=== PATIENT | male | born 1995 | race Caucasian/White ===

== ENCOUNTER 2018-02-03 07:22 | Day surgery (SDC) | payer OTHER ==
[~2018-02-03] VITALS: Ht 188 cm; Wt 90.7 kg
[2018-02-03] VITALS (9 sets, daily range): BP systolic 107–142; BP diastolic 56–80
--- NOTE | 2018-02-03 07:12 | Pre-Procedure Note/Attestation ---
Pre-Procedure Note/Attestation Complete Prior to Procedure Planned Procedure: left Procedure Narrative: knee arthroscopy lateral menisectomy Indications for Procedure Pre-Operative Diagnosis: left knee lateral meniscus tear Attestation I attest that I discussed the nature of the procedure; its benefits; risks and complications; and alternatives (and the risks and benefits of such alternatives ), prior to the procedure, with the patient (or the patient's legal key account representative). I attest that, if there was a reasonable possibility of needing a blood transfusion, the patient (or the patient's legal key account representative) was given the [facility] standardized written summary, pursuant to the Jeet Blairs Blood Safety Act ([place] Health and Safety Code # 1645, as amended). I attest that I re-evaluated the patient just prior to the surgery and that there has been no change in the patient's H&P, except as documented below: Ivan Duque MD Feb 03, 2018 07:12
--- NOTE | 2018-02-03 07:13 | Operative Note - PDOC ---
Operative Note Operative Note Pre-op Diagnosis: left knee lateral meniscus tear Procedure: see op report Post-op Diagnosis: same as pre-op plus Operative Findings: consistent w/pre-op dx studies Anesthesia: MAC Specimen: none Complications: none Condition: stable Estimated Blood Loss: none Implant(s) used?: No Ivan Duque MD Feb 03, 2018 07:13
[~2018-02-03 07:22] MED LIST: D5 1/2NS 1,000 ML IV SCH; HYDROmorphone 1mg/ml Carpuject SUBQ PRN; NKM; Norco 5mg/325mg tab ORAL PRN; Tylenol #3 tab (300mg/30mg) ORAL PRN; ceFAZolin 1gm in D5W 55ml IVP ONE; celeBREX 200mg Cap **SURGERY PATIENTS ONLY ORAL ONE; oxyCONTIN 20mg tab ORAL ONE
[2018-02-03] MEDS ORDERED: celeBREX 200mg Cap **SURGERY PATIENTS ONLY ORAL ONE (09:03)
[2018-02-03] MEDS ORDERED: oxyCONTIN 20mg tab ORAL ONE (09:03)
[2018-02-03] MEDS ORDERED: Midazolam 2mg/2ml Inj ONE (09:29)
[2018-02-03] MEDS ORDERED: fentaNYL 100 mcg/2 mL IV ONE (09:29)
[2018-02-03] MEDS ORDERED: LR 1000ml ONE (09:30)
[2018-02-03] MEDS ORDERED: Morphine Sulfate PF 10 ML ONE (09:32)
[2018-02-03] MEDS ORDERED: Lidocaine 1% 10mg/ml/Epi 0.005mg/ml 30ml vial INJ ONE ×2 (09:33→15:48)
[2018-02-03] MEDS ORDERED: Bupivacaine 0.5% Inj 30 ml vial INJ ONE (09:33)
[2018-02-03] MEDS ORDERED: Kenalog-40 1ml Vial ONE (09:33)
[2018-02-03] MEDS ORDERED: EPINEPHrine 1mg/1ml Amp ONE (09:33)
[2018-02-03] MEDS ORDERED: Ketorolac 30mg Inj ONE ×2 (09:33→09:35)
[2018-02-03] MEDS ORDERED: Lidocaine 1% MPF 10mg/ml 5ml ONE (09:35)
[2018-02-03] MEDS ORDERED: Propofol 200mg/20ml IV ONE (09:35)
[2018-02-03] MEDS ORDERED: LR 1000ml 1,000 ML IVLG SCH (10:12)
--- NOTE | 2018-02-03 10:12 | Anethesia Preoperative Eval ---
Anesthesia Pre-op PMH/ROS General Date of Evaluation: Feb 03, 2018 Time of Evaluation: 09:38 Anesthesiologist: Jaja ASA Score: ASA 2 Mallampati Score Class I : Soft palate, uvula, fauces, pillars visible Class II: Soft palate, uvula, fauces visible Class III: Soft palate, base of uvula visible Class IV: Only hard plate visible Mallampati Classification: Class II Surgeon: Neto Diagnosis: L knee pain Surgical Procedure: Lknee scope Anesthesia History: none Family History: no anesthesia problems Allergies: Coded Allergies: No Known Allergies (Unverified , 02/02/18) Past Medical History Cardiovascular: Denies: HTN, CAD, SD, valve dz, arrhythmia, other Pulmonary: Denies: asthma, COPD, SHEILA, other Gastrointestinal/Genitourinary: Reports: GERD - mild; Denies: CRI, ESRD, other Neurologic/Psychiatric: Denies: dementia, CVA, depression/anxiety, TIA, other Endocrine: Denies: DM, hypothyroidism, steroids, other HEENT: Denies: cataract (L), cataract (R), glaucoma, [place] (L), [place] (R), other Hematology/Immune: Denies: anemia, DVT, bleeding disorder, other Musculoskeletal/Integumentary: Denies: OA, RA, DJD, DDD, edema, other PMH Narrative: as above PSxH Narrative: R knee scope Anesthesia Pre-op Phys. Exam Physician Exam Last Vital Signs Date Time Temp Pulse Resp B/P (MAP) Pulse Ox O2 Delivery O2 Flow Rate FiO2 02/03/18 08:56 97.3 65 20 126/72 (90) 100 97.3 02/03/18 08:52 Room Air Constitutional: NAD Neurologic: CN 2-12 intact Cardiovascular: RRR, no M/R/G Respiratory: CTA Gastrointestinal: S/NT/ND Airway Exam Mallampati Score: Class II MO: full Neck: flexible ROM: full Teeth: intact Dentures: no upper, no lower Anesthesia Pre-op A/P Labs see chart Studies Pre-op Studies: EKG - NSR Risk Assessment & Plan Assessment: ASA 2 Plan: GA with LMA Status Change Before Surgery: No Pre-Antibiotics Drug: Ancef 1gr. Given Within 1 Hr of Incision: Yes Time Given: 09:58 Seng Wilkinson MD Feb 03, 2018 10:12
[2018-02-03] MEDS ORDERED: Metoclopramide 10mg/2ml Inj IVP PRN (10:15)
[2018-02-03] MEDS ORDERED: Meperidine 50mg/ml Inj(FOR RIGORS ONLY) IV PRN (10:15)
[2018-02-03] MEDS ORDERED: Ketorolac 30mg Inj IV PRN (10:15)
[2018-02-03] MEDS ORDERED: DiphenhydrAMINE 50mg/ml Inj IVP PRN (10:15)
--- NOTE | 2018-02-03 10:42 | Immediate Post-Op Evaluation ---
Immediate Post-Op Evalulation Immediate Post-Op Evalulation Procedure: L knee arthroscopy meniscectomy Date of Evaluation: Feb 03, 2018 Time of Evaluation: 10:41 IV Fluids: 800 Blood Products: none Estimated Blood Loss: min Urinary Output: none Blood Pressure Systolic: 107 Blood Pressure Diastolic: 56 Pulse Rate: 72 Respiratory Rate: 20 O2 Sat by Pulse Oximetry: 99 Temperature (Fahrenheit): 97.6 Pain Score (1-10): 2 Nausea: No Vomiting: No Complications none Patient Status: awake, patent, none Hydration Status: adequate Seng Wilkinson MD Feb 03, 2018 10:41
--- NOTE | 2018-02-03 12:14 | 48 Hour Post Anesthesia Eval ---
Post Anesthesia Evaluation Procedure: L knee arthroscopy meniscectomy Date of Evaluation: Feb 03, 2018 Time of Evaluation: 12:13 Blood Pressure Systolic: 112 0: 56 Pulse Rate: 78 Respiratory Rate: 18 Temperature (Fahrenheit): 97.6 O2 Sat by Pulse Oximetry: 98 Airway: patent Nausea: No Vomiting: No Pain Intensity: 2 Hydration Status: adequate Cardiopulmonary Status: stable Mental Status/LOC: patient returned to baseline Follow-up Care/Observations: n/a Post-Anesthesia Complications: none Follow-up care needed: ready to discharge Seng Wilkinson MD Feb 03, 2018 12:14
[2018-02-03] MEDS ORDERED: NS Irrig 4000ml IRRIG ONE (15:46)
[2018-02-03] MEDS ORDERED: Kenalog-40 1ml Vial INJ ONE (15:47)
[2018-02-03] MEDS ORDERED: Duramorph PF 10mg/10ml amp IT ONE (15:47)
--- NOTE | 2018-02-03 20:30 | Operative Note - Dictated ---
DATE OF OPERATION: 02/03/2018 PREOPERATIVE DIAGNOSIS: Left knee lateral meniscus tear. POSTOPERATIVE DIAGNOSES: 1. Left knee lateral meniscus tear. 2. Hypertrophic synovial tissue/fat pad medial and lateral patellofemoral compartment. SURGEON: Ivan Duque M.D. ANESTHESIA: MAC. INDICATION FOR PROCEDURE: The patient is a pleasant gentleman, who has had progressive left knee pain. An MRI showed a lateral meniscus tear. He has failed conservative treatment and elected to undergo left knee arthroscopy and medial meniscectomy. Risks, limitations, expectations and complications for the procedure were discussed in detail. All questions addressed. DESCRIPTION OF PROCEDURE: After informed consent was obtained, the patient was brought to the operating room. We placed the patient under general anesthesia. Tourniquet was placed in left proximal thigh. Left leg was prepped and draped in a sterile manner. Time-out was performed. Inferolateral stab incision was then made. Trocar was introduced in the knee joint. There is hypertrophic fat pad and synovial tissue making the position of patellofemoral difficult. Medial portal was entered. Medial compartment entered. The meniscus was probed, noted to be intact along with the cartilage. The intercondylar notch was entered. Hypertrophic fat pad and synovial tissue was excised. The ACL was probed, noted to be intact. Lateral compartment was entered. The radial tear between the anterior horn of middle body. Partial meniscectomy lateral meniscus performed using a combination of dudley and biters. Once that was done, the instruments were removed. Portal sites were closed with 3-0 Monocryl sutures. Compression dressing was applied. The patient was awoken and taken to recovery room with stable vital signs. ESTIMATED BLOOD LOSS: None. COMPLICATIONS: None. SPECIMENS: None. IMPLANTS: None. Ivan Duque M.D. DR: DUONG JOB#: [id number] CC:
== END 2018-02-03 12:40 | disposition home or self-care (01) ==
LOC: SUR 07:22
DX: M23.242 Derangement of anterior horn of lateral meniscus due to old tear or injury, left knee (principal); M67.262 Synovial hypertrophy, not elsewhere classified, left lower leg; E66.3 Overweight; E80.6 Other disorders of bilirubin metabolism; K21.9 Gastro-esophageal reflux disease without esophagitis
CPT/HCPCS: 29881; J0171; J0690; J1885; J2250; J2274; J2405; J2704; J3010; J3301; J3490; J7120; 94003; 94150